=== PATIENT | male | born 1985 | race American Indian/Alaskan Native ===

== ENCOUNTER 2019-11-22 00:33 | Emergency (ER) | payer OTHER ==
[2019-11-22] MEDS ORDERED: ACETAMINOPHEN 325 MG TAB PO ONE (01:44)
[2019-11-22] MEDS ORDERED: ACETAMINOPHEN 325 MG TAB ONE (01:48)
[2019-11-22 02:21] LABS: Basophils % (Auto) 0.1 % (0.0-1.8); Eosinophils % (Auto) 0.1 % (0.0-4.3); Hematocrit 43.6 % (35.5-45.6); Hemoglobin 14.4 gm/dl (11.8-15.2); Lymphocytes # (Auto) 0.5 K/mm3 (1.2-5.4); Lymphocytes % (Auto) 7.1 % (13.4-35.0); Mean Corpuscular HGB Conc 33 % (32-34); Mean Corpuscular Volume 82 fl (84-94); Monocytes # (Auto) 0.8 K/mm3 (0.0-0.8); Monocytes % (Auto) 10.7 % (0.0-7.3); Platelet Count 271 K/mm3 (140-440); Red Blood Count 5.34 M/mm3 (3.65-5.03); Red Cell Distribution Width 14.5 % (13.2-15.2)
--- NOTE | 2019-11-22 02:21 | XRay Report ---
CHEST 1 VIEW INDICATION: Chest Pain. COMPARISON: none FINDINGS: SUPPORT DEVICES: None. HEART / MEDIASTINUM: No significant abnormality. LUNGS / PLEURA: No significant pulmonary or pleural abnormality. No pneumothorax. ADDITIONAL FINDINGS: IMPRESSION: 1. No acute findings. Signer Name: Oral Thornton MD Signed: 11/22/2019 2:17 AM Workstation Name: [id number] ([id number])
[2019-11-22 02:39] LABS: BUN/Creatinine Ratio 10; Blood Urea Nitrogen 11 mg/dL (9-20); Calcium 9.1 mg/dL (8.4-10.2); Hemolysis Index 8
[2019-11-22] MEDS ORDERED: SODIUM CHLORIDE 0.9% 1000 ML 1,000 ML IV ONE ×2 (06:54)
[2019-11-22] MEDS ORDERED: ONDANSETRON 4 MG/2 ML INJ IV ONE (06:56)
[2019-11-22] MEDS ORDERED: fentaNYL 100 MCG/2 ML INJ IV ONE (06:56)
[2019-11-22] MEDS ORDERED: IBUPROFEN 800 MG TAB PO ONE (06:56)
--- NOTE | 2019-11-22 07:01 | Emergency Department Report ---
HPI - General Chief Complaint: Chest Pain Time Seen by Provider: 11/22/19 06:40 - HPI HPI: Room 9 The patient is a 34-year-old male presenting with a chief complaint of cough and back pain. The patient states yesterday he was in his usual state of health. The patient states this morning at 02:00 after getting off work he developed cough productive of green sputum. Patient states he developed right-sided chest and shoulder pain with his cough. Patient states then developed rhinorrhea. Patient to cold medication but it did not help. Patient states he continued to have the right-sided chest pain headache and pain in his lower back. Patient a dmits to slight pleurisy. Patient admits to a subjective fever. Patient missed a shortness of breath and nausea without vomiting. Patient currently gets his chest pain a score of 10/10 Location: [See above] Duration: [See above] Quality: [See above] Severity: [See above] Timing: [See above] Context: [See above] Modifying factors: [See above] Associated signs and symptoms: [see above] ED Past Medical Hx - Past Medical History Previous Medical History?: No - Surgical History Past Surgical History?: No - Family History Family history: no significant - Social History Smoking Status: Former Smoker (none 10 years) Substance Use Type: Alcohol (occasional), Marijuana - Medications Home Medications: Home Medications Medication Instructions Recorded Confirmed Last Taken Type ALBUTEROL Inhaler (OR & NICU) 2 puff IH QID PRN #8.5 gram 11/22/19 Unknown Rx [ProAir HFA Inhaler] Benzonatate [Tessalon Perles] 100 mg PO Q8HR #30 capsule 11/22/19 Unknown Rx HYDROcodone/APAP 5-325 [[place] 1 - 2 each PO Q6HR PRN #14 tablet 11/22/19 Unknown Rx 5/325] Ibuprofen [Motrin 800 MG tab] 800 mg PO Q8HR PRN #20 tablet 11/22/19 Unknown Rx levoFLOXacin [Levaquin TAB] 500 mg PO QDAY #10 tablet 11/22/19 Unknown Rx ED Review of Systems ROS: Stated complaint: CHEST PAIN/SOB Other details as noted in HPI Constitutional: diaphoresis, fever (subjective) Eyes: denies: eye pain ENT: denies: throat pain Respiratory: cough, shortness of breath Cardiovascular: chest pain Gastrointestinal: nausea. denies: vomiting Genitourinary: denies: dysuria Musculoskeletal: back pain, myalgia Neurological: headache Physical Exam - Physical Exam Vital Signs: Vital Signs 11/22/19 11/22/19 11/22/19 00:39 01:37 05:44 Temperature 97.8 F 100.1 F H 99.9 F H Pulse Rate 127 H 119 H Respiratory 20 20 Rate Blood Pressure 160/108 194/113 O2 Sat by Pulse 95 97 Oximetry 11/22/19 11/22/19 11/22/19 06:42 06:45 06:46 Temperature 102.0 F H Pulse Rate 122 H 115 H Respiratory 22 18 Rate Blood Pressure 170/97 O2 Sat by Pulse 95 98 Oximetry Physical Exam: GENERAL: The patient is well-developed well-nourished male lying on stretcher not appearing to be in acute distress. [] HEENT: Normocephalic. Atraumatic. Extraocular motions are intact. Patient has moist mucous membranes. NECK: Supple. Trachea midline CHEST/LUNGS: Diminished breath sounds likely secondary to poor effort. There is no respiratory distress noted. HEART/CARDIOVASCULAR: Regular. There is tachycardia. There is no gallop rub or murmur. ABDOMEN: Abdomen is soft, nontender. Patient has normal bowel sounds. There is no abdominal distention. SKIN: There is no rash. There is no edema. There is no diaphoresis. NEURO: The patient is awake, alert, and oriented. The patient is cooperative. The patient has normal speech MUSCULOSKELETAL:There is no evidence of acute injury. ED Course Vital Signs 11/22/19 11/22/19 11/22/19 00:39 01:37 05:44 Temperature 97.8 F 100.1 F H 99.9 F H Pulse Rate 127 H 119 H Respiratory 20 20 Rate Blood Pressure 160/108 194/113 O2 Sat by Pulse 95 97 Oximetry 11/22/19 11/22/19 11/22/19 06:42 06:45 06:46 Temperature 102.0 F H Pulse Rate 122 H 115 H Respiratory 22 18 Rate Blood Pressure 170/97 O2 Sat by Pulse 95 98 Oximetry ED Medical Decision Making - Lab Data Result diagrams: 11/22/19 01:55 11/22/19 01:55 Laboratory Tests 11/22/19 11/22/19 11/22/19 01:55 01:55 04:27 WBC 7.4 RBC 5.34 H Hgb 14.4 Hct 43.6 MCV 82 L MCH 27 L MCHC 33 RDW 14.5 Plt Count 271 Lymph % (Auto) 7.1 L [place] % (Auto) 10.7 H Eos % (Auto) 0.1 Baso % (Auto) 0.1 Lymph # 0.5 L [place] # 0.8 Eos # 0.0 Baso # 0.0 Seg Neutrophils % 82.0 H Seg Neutrophils # 6.1 D-Dimer Sodium 139 Potassium 4.0 Chloride 103.8 Carbon Dioxide 23 Anion Gap 16 BUN 11 Creatinine 1.1 Estimated GFR > 60 BUN/Creatinine Ratio 10 Glucose 119 H Lactic Acid Calcium 9.1 Troponin T < 0.010 < 0.010 TSH Free T4 Influenza A (Rapid) Influenza B (Rapid) 11/22/19 11/22/19 11/22/19 06:54 07:10 07:11 WBC RBC Hgb Hct MCV MCH MCHC RDW Plt Count Lymph % (Auto) [place] % (Auto) Eos % (Auto) Baso % (Auto) Lymph # [place] # Eos # Baso # Seg Neutrophils % Seg Neutrophils # D-Dimer Sodium Potassium Chloride Carbon Dioxide Anion Gap BUN Creatinine Estimated GFR BUN/Creatinine Ratio Glucose Lactic Acid 1.30 Calcium Troponin T < 0.010 TSH Free T4 Influenza A (Rapid) Negative Influenza B (Rapid) Negative 11/22/19 11/22/19 07:11 07:11 WBC RBC Hgb Hct MCV MCH MCHC RDW Plt Count Lymph % (Auto) [place] % (Auto) Eos % (Auto) Baso % (Auto) Lymph # [place] # Eos # Baso # Seg Neutrophils % Seg Neutrophils # D-Dimer 226.54 Sodium Potassium Chloride Carbon Dioxide Anion Gap BUN Creatinine Estimated GFR BUN/Creatinine Ratio Glucose Lactic Acid Calcium Troponin T TSH 0.273 Free T4 1.08 Influenza A (Rapid) Influenza B (Rapid) - EKG Data -: EKG Interpreted by Me EKG shows normal: sinus rhythm Rate: tachycardia (126 bpm) - EKG Data When compared to previous EKG there are: previous EKG unavailable Interpretation: nonspecific ST-T wave [place] (T-wave inversion in lead V3, V4, V5) - Radiology Data Radiology results: report reviewed (chest x-ray), image reviewed (chest x-ray) interpreted by me: Chest x-ray-no definite focal infiltrates, no pneumothorax [facility] [address] [place] [address] XRay Report Signed Patient: RAÚL TANG JR MR#: [id number] : 1985 Acct:[id number] Age/Sex: 34 / M ADM Date: 11/22/19 Loc: ED Attending Dr: Ordering Physician: TOR ARIAS MD Date of Service: 11/22/19 Procedure(s): XR chest 1V ap Accession Number(s): [id number] cc: ED MD JUANA Fluoro Time In Minutes: CHEST 1 VIEW INDICATION: Chest Pain. COMPARISON: none FINDINGS: SUPPORT DEVICES: None. HEART / MEDIASTINUM: No significant abnormality. LUNGS / PLEURA: No significant pulmonary or pleural abnormality. No pneumothorax. ADDITIONAL FINDINGS: IMPRESSION: 1. No acute findings. Signer Name: Oral Thornton MD Signed: 11/22/2019 2:17 AM Workstation Name: [id number] Transcrib ed By: Dictated By: Oral Thornton MD Electronically Authenticated By: Oral Thornton MD Signed Date/Time: 11/22/19216 DD/ 6 TD/TT: - Differential Diagnosis influenza, pneumonia, PE, ACS, pericarditis, GERD Critical care attestation.: If time is entered above; I have spent that time in minutes in the direct care of this critically ill patient, excluding procedure time. ED Disposition Clinical Impression: Acute bronchitis, Costochondritis, acute, Pleurisy, Fever Disposition: - TO HOME OR SELFCARE Is pt being admited?: No Does the pt Need Aspirin: No Condition: Stable Instructions: Acute Bronchitis (ED) Additional Instructions: Return to the emergency department should you develop worsening symptoms, inability to tolerate food or liquids, high fever or any other concerns Prescriptions: levoFLOXacin [Levaquin TAB] 500 mg PO QDAY #10 tablet Ibuprofen [Motrin 800 MG tab] 800 mg PO Q8HR PRN #20 tablet PRN Reason: Pain, Moderate (4-6) HYDROcodone/APAP 5-325 [[place] 5/325] 1 - 2 each PO Q6HR PRN #14 tablet PRN Reason: Pain ALBUTEROL Inhaler (OR & NICU) [ProAir HFA Inhaler] 2 puff IH QID PRN #8.5 gram PRN Reason: Shortness Of Breath Benzonatate [Tessalon Perles] 100 mg PO Q8HR #30 capsule Referrals: [facility] [Outside] - 3-5 Days Time of Disposition: 11:00
[2019-11-22 08:10] LABS: Free T4 (Free Thyroxine) 1.08 ng/dL (0.76-1.46)
[2019-11-22] MEDS ORDERED: levoFLOXacin 500 MG TAB PO ONE (10:56)
[2019-11-22 11:31] VITALS: BP 151/87
== END 2019-11-22 11:28 | disposition home or self-care (01) ==
LOC: ED 00:33
DX: J20.9 Acute bronchitis, unspecified (principal); M94.0 Chondrocostal junction syndrome [Tietze]; R09.1 Pleurisy; Z87.891 Personal history of nicotine dependence; F12.10 Cannabis abuse, uncomplicated
CPT/HCPCS: 36415; 36569; 71045; 80048; 82140; 84439; 84443; 84484; 85025; 85379; 87040; 87400; 93005; 93010; 96374; 96375; 99284; J2405; J3010; J7030

== ENCOUNTER 2019-11-28 10:39 | Emergency (ER) | payer SELFPAY ==
[2019-11-28 11:13] VITALS: BP 139/79
== END 2019-11-28 11:00 | disposition left against medical advice (07) ==
LOC: ED 10:39
DX: M79.10 Myalgia, unspecified site (principal); Z53.21 Procedure and treatment not carried out due to patient leaving prior to being seen by health care provider